=== PATIENT | male | born 1940 | race Caucasian/White ===

== ENCOUNTER → 2018-03-13 10:20 | Outpatient (CLI) | payer SELFPAY ==
[2018-03-13 10:44] LABS: ALBUMIN 2.7 g/dL (3.4-5.0); ANION GAP 12.4 mmol/L (8-16); BILIRUBIN - TOTAL 0.38 mg/dL (0.2-1.3); CALCIUM 8.8 mg/dL (8.5-10.1); CARBON DIOXIDE 27.5 mmol/L (21.0-32.0); CHOL - HDL RATIO 8.4 ratio (2.3-4.9); CREATININE - SERUM 1.1 mg/dL (0.6-1.3); LDL-HDL RATIO 4.1 ratio (1.5-3.5); POTASSIUM - SERUM 3.9 mmol/L (3.5-5.1); PROTEIN - SERUM 7.4 g/dL (6.4-8.2); VANCOMYCIN - TROUGH 12.9 ug/mL (10.0-20.0)
== END | disposition home or self-care (01) ==
LOC: D.LABREF 10:20
PROVIDERS: Internal Medicine
DX: C93.10 Chronic myelomonocytic leukemia not having achieved remission (principal); E83.42 Hypomagnesemia; M62.81 Muscle weakness (generalized)

== ENCOUNTER → 2018-03-16 12:20 | Outpatient (CLI) | payer SELFPAY ==
[2018-03-16 16:24] LABS: APPEARANCE CLEAR (CLEAR); BACTERIA FEW /hpf (NONE SEEN); BILIRUBIN NEGATIVE (NEGATIVE); COLOR YELLOW (YELLOW); GLUCOSE NEGATIVE (NEGATIVE); KETONE NEGATIVE (NEGATIVE); NITRITE NEGATIVE (NEGATIVE); PROTEIN 1+ mg/dL (NEGATIVE); RED CELLS - URINE 0-5 /hpf (0-5); UROBILINOGEN NORMAL (NORMAL); WHITE CELLS - URINE OCC /hpf (0-5)
[2018-03-16 16:50] LABS: BASOPHILS 0.5 % (0-2); EOSINOPHILS 0.7 % (0-7); HEMATOCRIT 31.1 % (42.0-54.0); HEMOGLOBIN 9.9 g/dL (13.5-17.5); IMMATURE GRANULOCYTES 0.7 % (0-5); LYMPHOCYTES 21.9 % (15-50); MCH 27.5 pg (26.0-34.0); MCHC 31.8 g/dL (31.0-37.0); MCV 86.4 fL (80.0-100.0); MEAN PLATELET VOLUME 9.8 fL (7.4-10.4); MONOCYTES 10.1 % (2-11); NEUTROPHILS 66.1 % (40-80); PLATELET COUNT 533 10x3/uL (130-400); RDW 18.8 % (11.5-14.5); WBC 4.1 10x3/uL (4.8-10.8)
== END | disposition home or self-care (01) ==
LOC: D.LABREF 12:20
PROVIDERS: Internal Medicine
DX: C93.10 Chronic myelomonocytic leukemia not having achieved remission (principal); Z46.6 Encounter for fitting and adjustment of urinary device; M62.81 Muscle weakness (generalized); E83.42 Hypomagnesemia

== ENCOUNTER → 2018-03-20 14:14 | Outpatient (CLI) | payer SELFPAY ==
[2018-03-20 14:32] LABS: BASOPHILS 0.6 % (0-2); EOSINOPHILS 0.8 % (0-7); HEMATOCRIT 35.1 % (42.0-54.0); HEMOGLOBIN 11.1 g/dL (13.5-17.5); IMMATURE GRANULOCYTES 0.2 % (0-5); LYMPHOCYTES 26.6 % (15-50); MCH 27.4 pg (26.0-34.0); MCHC 31.6 g/dL (31.0-37.0); MCV 86.7 fL (80.0-100.0); MEAN PLATELET VOLUME 10.1 fL (7.4-10.4); MONOCYTES 15.7 % (2-11); NEUTROPHILS 56.1 % (40-80); PLATELET COUNT 498 10x3/uL (130-400); RBC 4.05 10x6/uL (4.20-6.10); RDW 18.4 % (11.5-14.5); WBC 4.9 10x3/uL (4.8-10.8)
[2018-03-20 14:52] LABS: CHOL - HDL RATIO 5.5 ratio (2.3-4.9); VANCOMYCIN - TROUGH 14.7 ug/mL (10.0-20.0)
== END | disposition home or self-care (01) ==
LOC: D.LABREF 14:14
PROVIDERS: Internal Medicine
DX: C93.10 Chronic myelomonocytic leukemia not having achieved remission (principal); M62.81 Muscle weakness (generalized); E83.42 Hypomagnesemia

== ENCOUNTER → 2018-03-26 12:50 | Outpatient (CLI) | payer MEDICARE ==
[2018-03-26 15:18] LABS: BASOPHILS 0.5 % (0-2); EOSINOPHILS 0.9 % (0-7); HEMATOCRIT 29.8 % (42.0-54.0); HEMOGLOBIN 9.5 g/dL (13.5-17.5); IMMATURE GRANULOCYTES 0.2 % (0-5); MCH 27.4 pg (26.0-34.0); MCHC 31.9 g/dL (31.0-37.0); MCV 85.9 fL (80.0-100.0); MEAN PLATELET VOLUME 9.9 fL (7.4-10.4); MONOCYTES 9.2 % (2-11); NEUTROPHILS 63.2 % (40-80); RBC 3.47 10x6/uL (4.20-6.10); RDW 17.8 % (11.5-14.5); WBC 4.3 10x3/uL (4.8-10.8)
[2018-03-26 15:20] LABS: PLATELET COUNT 307 10x3/uL (130-400)
[2018-03-26 16:32] LABS: ANION GAP 12.2 mmol/L (8-16); CARBON DIOXIDE 30.8 mmol/L (21.0-32.0); CREATININE - SERUM 1.2 mg/dL (0.6-1.3); VANCOMYCIN - TROUGH 9.9 ug/mL (10.0-20.0)
== END | disposition home or self-care (01) ==
LOC: D.LABREF 12:50
PROVIDERS: Internal Medicine Infectious Disease
DX: C93.10 Chronic myelomonocytic leukemia not having achieved remission (principal)

== ENCOUNTER → 2018-04-02 16:56 | Outpatient (CLI) | payer MEDICARE ==
[2018-04-02 19:20] LABS: BASOPHILS 0.2 % (0-2); EOSINOPHILS 1.3 % (0-7); HEMATOCRIT 34.4 % (42.0-54.0); HEMOGLOBIN 11.3 g/dL (13.5-17.5); IMMATURE GRANULOCYTES 0.4 % (0-5); LYMPHOCYTES 14.9 % (15-50); MCH 27.8 pg (26.0-34.0); MCHC 32.8 g/dL (31.0-37.0); MCV 84.7 fL (80.0-100.0); MEAN PLATELET VOLUME 10.3 fL (7.4-10.4); MONOCYTES 4.4 % (2-11); NEUTROPHILS 78.8 % (40-80); RBC 4.06 10x6/uL (4.20-6.10); RDW 17.2 % (11.5-14.5); WBC 8.4 10x3/uL (4.8-10.8)
[2018-04-02 19:21] LABS: PLATELET COUNT 374 10x3/uL (130-400)
[2018-04-02 20:08] LABS: ANION GAP 20.8 mmol/L (8-16); CALCIUM 9.6 mg/dL (8.5-10.1); CARBON DIOXIDE 20.7 mmol/L (21.0-32.0); CREATININE - SERUM 1.3 mg/dL (0.6-1.3); POTASSIUM - SERUM 3.5 mmol/L (3.5-5.1)
== END | disposition home or self-care (01) ==
LOC: D.LABREF 16:56
PROVIDERS: Internal Medicine
DX: C93.10 Chronic myelomonocytic leukemia not having achieved remission (principal); Z46.6 Encounter for fitting and adjustment of urinary device; Z85.51 Personal history of malignant neoplasm of bladder; E13.9 Other specified diabetes mellitus without complications